=== PATIENT | female | born 1945 | race Caucasian/White ===

== ENCOUNTER → 2019-03-12 | Outpatient (CLI) | payer MEDICARE, OTHER ==
[~2019-03-12] MED LIST: CALCAVITD PO; CETI10 PO; DIPH50 PO; FISH1000 PO; LOSA25; LOW DOSE ASPIRI81 MG PO; LUTEIN40 MG PO; PRAV20 PO; Synthroid25 MCG PO
[2019-03-12 11:58] LABS: Source, Urine Clean Catch
[2019-03-12 12:53] LABS: Appearance, Urine Hazy (Clear); Color, Urine Yellow (P-Yellow); Glucose Qualitative, Urine Neg (Normal); Ketones, Urine Neg (Neg); Leukocyte Esterase, Urine 2+ (Neg); Nitrite, Urine Neg (Neg); Protein, Urine Neg (Neg); Specific Gravity, Urine 1.015 (1.003-1.022); Urobilinogen, Urine NORM (Normal)
[2019-03-12 12:54] LABS: Bacteria Mod /hpf; Bilirubin, Urine 1+ (Neg); Blood, Urine Neg (Neg); Red Blood Cells, Urine Not Seen /hpf (0-2); Renal Epithelial Few /hpf (0-Rare); Squamous Epithelial Cells Rare /hpf (Few); White Blood Cells, Urine 25-50 /hpf (0-5)
== END | disposition home or self-care (01) ==
LOC: LAB EV 11:41
PROVIDERS: Family Medicine
DX: K52.9 Noninfective gastroenteritis and colitis, unspecified (principal)
CPT/HCPCS: 81001

== ENCOUNTER 2022-02-24 08:19 | Day surgery (SDC) | payer MEDICARE, OTHER ==
[~2022-02-24] VITALS: Ht 165.1 cm; Wt 83.0 kg
[2022-02-24] MEDS ORDERED: LOSA50 PO (08:44)
[2022-02-24] MEDS ORDERED: EUTHYROX50 MCG PO (08:45)
[2022-02-24] MEDS ORDERED: MULTIPLE VITAM1 EACH PO (08:46)
--- NOTE | 2022-02-24 11:00 | NUR ---
Patient returned to [facility] recovery room. Awake and alert. sitting up in bed. Dressing D&I. Ice pack placed to site.
--- NOTE | 2022-02-24 11:20 | NUR ---
dR [place] IN TO SEE PATIENT.
--- NOTE | 2022-02-24 11:39 | NUR ---
PATIENT TAKEN TO IMAGING FOR POST PACEMAKER CHEST XRAY. ARM SLING IN PLACE.
--- NOTE | 2022-02-24 14:20 | NUR ---
ancef 1 gram infusing
--- NOTE | 2022-02-24 15:00 | NUR ---
PATIENT UP TO REST ROOM AND DRESSED BY SELF. TOLERATED WELL. IV SITE DCED WITH CATHETER INTACT. INCISION SITE SOFT, NO HEMATOMA, NO BLEEDING. DRESSING D&I. ARM SLING IN PLACE. PATIENT VERBALIZED UNDERSTANDING OF DISCHARGE INSTRUCTIONS AND PRECAUTIONS. NO FURTHER QUESTIONS. PATIENT TRANSFERRED VIA WHEELCHAIR TO WAITING CAR. SON DRIVING.
== END 2022-02-24 15:00 | disposition home or self-care (01) ==
LOC: MHTC 08:19
DX: I49.5 Sick sinus syndrome (principal); I10 Essential (primary) hypertension; E78.5 Hyperlipidemia, unspecified; E03.9 Hypothyroidism, unspecified; F17.200 Nicotine dependence, unspecified, uncomplicated; I34.0 Nonrheumatic mitral (valve) insufficiency; I44.0 Atrioventricular block, first degree
CPT/HCPCS: 33208; 71046; 99152; 99153; C1785; C1894; C1898; J0690; J1580; J1644; J2250; J3010; J7030; J7040; Q9967

== ENCOUNTER → 2023-06-26 | Outpatient (CLI) | payer MEDICARE, OTHER ==
[~2023-06-26] MED LIST changes: +EUTHYROX50 MCG PO; +LOSA50 PO; +MULTIPLE VITAM1 EACH PO
[2023-06-26 14:05] LABS: Bun/Creatinine Ratio 31.6 (12.0-20.0); Calcium, Blood 9.4 mg/dL (8.5-10.1); Creatinine, Blood 0.95 mg/dL (0.40-1.00); Potassium, Blood 4.3 mmol/L (3.5-5.5)
== END | disposition home or self-care (01) ==
LOC: LAB 13:56 → LAB SHORT 13:56
PROVIDERS: Family Medicine
DX: M79.605 Pain in left leg (principal)
CPT/HCPCS: 80048